=== PATIENT | male | born 1975 | race African-American/Black ===

== ENCOUNTER 2023-11-12 18:16 | Emergency (ER) | payer SELFPAY ==
[2023-11-12 18:19] VITALS: BP 131/87
[2023-11-12 18:50] LABS: % Basophils 0.7 % (0-2); % Eosinophils 2.2 % (0-6); % Immature Granulocytes 0.2 % (0-0.5); % Lymphocytes 46.1 % (20.5-51.1); % Monocytes 6.7 % (1.7-9.3); % Neutrophils 44.1 % (42.2-75.2); Absolute Eosinophils 0.1 10^3/uL (0-0.7); Absolute Lymphocytes 2.5 10^3/uL (1.2-3.4); Absolute Monocytes 0.4 10^3/uL (0.1-0.6); Absolute Neutrophils 2.4 10^3/uL (1.4-6.5); Hematocrit 34.9 % (39.0-52.0); Hemoglobin 12.3 g/dL (13.0-18.0); Mean Corp Hgb Conc. 35.2 g/dL (33.0-37.0); Mean Corpuscular Hgb 30.2 pg (27.0-31.0); Mean Corpuscular Volume 85.7 fL (80.0-94.0); Mean Platelet Volume 9.2 fL (7.4-10.4); Nucleated Red Blood Cells % 0 % (-); Platelet Count 306 10^3/uL (130-400); Red Blood Cell Count 4.07 10^6/uL (4.70-6.10); Red Cell Dist. Width 12.7 % (11.5-14.5); White Blood Cell Count 5.4 10^3/uL (4.8-10.8)
[2023-11-12 19:04] LABS: ALT (SGPT) 23 U/L (0-50); AST (SGOT) 34 U/L (17-59); Albumin 4.2 g/dl (3.5-5.0); Alkaline Phosphatase 92 U/L (38-126); Blood Urea Nitrogen 8 mg/dl (9-20); Calcium 9.3 mg/dl (8.4-10.2); Carbon Dioxide 26 mmol/L (22-30); Chloride 108 mmol/L (98-107); Glucose 106 mg/dl (70-99); Potassium 3.9 mmol/L (3.5-5.1); Sodium 139 mmol/L (135-145); Total Bilirubin 0.5 mg/dl (0.2-1.3); Total Protein 6.8 g/dl (6.3-8.2); eGFR > 60.00
[2023-11-12 19:14] LABS: Troponin I < 0.012 ng/ml
[2023-11-12 19:38] LABS: TSH 0.77 uIU/ml (0.47-4.68)
[2023-11-12 20:26] VITALS: BP 117/73
[2023-11-12 20:29] VITALS: BMI 32.3
[2023-11-12 21:00] VITALS: BP 108/61
[2023-11-12 22:00] VITALS: BP 118/77
[2023-11-12 22:24] LABS: D-Dimer < 0.27 ug/mlFEU (0.00-0.50)
--- NOTE | 2023-11-12 22:30 | ED.GENMED ---
History of Present Illness
General
Chief Complaint: Breathing Problem
Source: patient and significant other
Time Seen by Provider: 11/12/23 21:16
Travel History
Have you had any contact with someone who has COVID-19?: No
Do you have any symptoms of coronavirus? Fever > 100 degrees, chills, cough, shortness of breath, sore throat, loss of taste or smell, muscle aches, or headache?: No
History of Present Illness
History of Present Illness:
48-year-old male who presents with left-sided chest pain. Patient states he has had pain for maybe about 2 weeks or since yesterday. Also felt like his heart was pounding and felt little short of breath. Does have an appoint with his PCP
tomorrow. Is being evaluated for thyroid issues. Patient states the pain is constant. Sometimes seems little worse. No injury. No rash. No fevers.
Past History
Past History
ED Past Medical History: GERD, Seizures ( Last seizure 2002.) and Psychiatric (Anxiety)
ED Past Surgical History: None
Social History
Tobacco: Smoker
Alcohol: Occasional
Drug: Marijuana
Personal:
Living: with family
Family History
Family History: Sudden (brother x 2; ?avm)
Phy Exam
Physical Exam
Physical Exam:
CONSTITUTIONAL Patient alert and oriented to person, place and time. Well-appearing. Vital signs reviewed.
HEAD atraumatic, normocephalic.
EYES eyelids normal to inspection, Pupils equally round and reactive to light, Extraocular muscles intact, Conjunctiva normal, Sclera normal.
NECK normal range of motion, Trachea midline, no jugular venous distention.
RESPIRATORY CHEST No respiratory distress noted, Chest expansion equal, Bilateral breath sounds clear.
CARDIOVASCULAR regular rate and rhythm, Heart sounds normal.
ABDOMEN abdomen nontender, Bowel sounds normal. No distention.
BACK normal inspection, no obvious deformities
UPPER EXTREMITY range of motion normal, Motor strength normal, no cyanosis, no edema.
LOWER EXTREMITY range of motion normal, Motor strength normal, no cyanosis, no edema.
NEURO Speech normal, No focal motor deficits, Lambert coma scale 15, Memory normal, Cranial Nerves intact to screening exam.
SKIN skin warm, dry, and normal in color.
PSYCHIATRIC patient oriented to person place and time, Normal affect.
Scores
Heart Failure Risk
Heart Failure Risk Score: Not Applicable
Course
Orders/Labs/Results
Orders:
Orders
11/12/23 18:23
ECG [Electrocardiogram (*1)] Urgent
Reason for Study: Chest Pain
Other Reason for Exam: palpitations
EKG- Treatment ONCE
11/12/23 18:33
Comprehensive Metabolic Panel Urgent
TSH Urgent
11/12/23 18:34
Complete Blood Count/With Diff Urgent
Troponin I Urgent
11/12/23 21:17
CR Chest - 2 Views Urgent
Comment:
Reason For Exam: sob, cp, palpitations
11/12/23 21:34
DDimer [D-Dimer] Stat
Abnormal Lab Results
11/12/23 11/12/23
18:33 18:34
RBC 4.07 L 10^6/uL
(4.70-6.10)
Hgb 12.3 L g/dL
(13.0-18.0)
Hct 34.9 L %
(39.0-52.0)
Chloride 108 H mmol/L
(98-107)
BUN 8 L mg/dl
(9-20)
Glucose 106 H mg/dl
(70-99)
11/12/23 18:34
11/12/23 18:33
Vital Signs
Initial and Last Documented VS:
Initial Vital Signs
Temp Pulse Resp BP Pulse Ox
99.3 F 72 16 131/87 99
11/12/23 18:19 11/12/23 18:19 11/12/23 18:19 11/12/23 18:19 11/12/23 18:19
Last Documented Vital Signs
Temp Pulse Resp BP Pulse Ox
99.3 F 76 15 118/77 97
11/12/23 18:19 11/12/23 22:15 11/12/23 22:15 11/12/23 22:00 11/12/23 22:30
MDM/Problems Addressed
MDM/Problems Addressed:
Chest pain, palpitations, dyspnea
*Radiology
Radiology exam reviewed: preliminary read by ED provider
*Pulse Oximetry
Patient hypoxic: no
*EKG
Interpreted by ED Provider?: Yes
Interpretation: normal
Rate: normal
Rhythm: sinus
[place]: normal axis
QRS Pattern: normal QRS
Ischemia: no ischemia
*[employer] Interpretation
Rate: normal
Interpretation: normal
Rhythm: sinus
*Critical Care Note
Total Time (30-74mins, 75-104mins- exclusive of procedures): Not Applicable
Data Reviewed
Source: patient
Prescriptions/Medications Considered But Not Given:
Consider aspirin but low suspicion for ACS. Follow-up with PCP tomorrow
Patient Management
Escalation/DeEscalation of care consider admission/obs:
ED workup negative despite several days of symptoms. Outpatient PCP follow-up tomorrow. May need stress testing or other workup
ED Attending Note
-
Portions of this chart may have been created with voice recognition software.� Occasional wrong word or��sound alike� substitutions may have occurred due to the inherent limitations of voice recognition software.
Discharge Plan
Departure
Patient Disposition: Home (Routine Discharge)
Date of Disposition: 11/12/23
Time of Disposition: 22:31
Patient with high blood pressure during this ER visit?: No
Discharge Problem:
Chest pain, Palpitations
Instructions: Chest Pain PCP Follow Up, Heart Palpitations
Prescriptions:
No Action
omeprazole 20 MG capsule,delayed release(DR/EC)
20 mg PO DAILYPRN PRN (Reason: gerd)
Patient Comments:
asked patient twice , patient sayes he filled this by rx but [facility] has protonix patient not 100% filling well and has short temper
clonazepam 1 MG tablet
1 mg PO HSPRN PRN (Reason: sleep)
Patient Comments:
10/26/20- lasted took on 10/25/20 0.5mg bedtime, lasted filled on 10/25/20 #30
Referrals:
Raymond Parikh, DO [Family Provider] -
Activity Restrictions/Additional Instructions:
Please see your doctor in follow-up as planned. Return immediately for worsening pain, shortness of breath, passing out episode or any other concerns.
Interventions
Interventions:
*Risk Screen - Suicide Last Done: 11/12/23 20:29
*General Assessment Last Done: 11/12/23 20:29
*Neglect/Abuse Screening Last Done: 11/12/23 20:29
ED- Fall Risk Assessment Last Done: 11/12/23 20:29
*ED COVID-19 Vaccine History Last Done: 11/12/23 20:29
*Nursing Disposition Last Done: 11/12/23 22:53
ED- Cardiac Assessment Last Done: 11/12/23 20:29
ED- Pulmonary Assessment Last Done: 11/12/23 20:29
Discharge Date and Time
Discharge Date/Time: 11/12/23 22:54
== END 2023-11-12 22:54 | disposition home or self-care (01) ==
LOC: EMR 18:16
PROVIDERS: Emergency Medicine; EMERGENCY PHYSICIAN Emergency Medicine; FAMILY PHYSICIAN Family Medicine
DX: R07.89 Other chest pain (principal); R00.2 Palpitations; K21.9 Gastro-esophageal reflux disease without esophagitis; F41.9 Anxiety disorder, unspecified; F17.200 Nicotine dependence, unspecified, uncomplicated
CPT/HCPCS: 99283; 71046; 80053; 84443; 84484; 85025; 85379; 93005

== ENCOUNTER → 2024-03-31 13:21 | Outpatient (REF) | payer BC, SELFPAY | LOC: RCS 13:21 | PROVIDERS: ATTENDING PHYSICIAN Physician Assistant Medical | DX: R00.2 Palpitations (principal) | CPT/HCPCS: 93225; 93226 ==

== ENCOUNTER → 2024-06-04 15:05 | Outpatient (REF) | payer BC, SELFPAY | LOC: HWRCS 15:05 | PROVIDERS: ATTENDING PHYSICIAN Internal Medicine Cardiovascular Disease; FAMILY PHYSICIAN Family Medicine | DX: R00.2 Palpitations (principal) | CPT/HCPCS: 93306 ==

== ENCOUNTER → 2024-06-14 15:15 | Outpatient (REF) | payer BC, SELFPAY | LOC: HWRAD 15:15 | PROVIDERS: ATTENDING PHYSICIAN Family Medicine | DX: R22.2 Localized swelling, mass and lump, trunk (principal) | CPT/HCPCS: 76705 ==